=== PATIENT | male | born 1975 | race Asian ===

== ENCOUNTER 2020-08-30 08:48 | Emergency (ER) | payer SELFPAY ==
[~2020-08-30] VITALS: Ht 165.1 cm; Wt 106.1 kg
[2020-08-30 09:42] VITALS: Ht 165.1 cm; Wt 106.1 kg
[2020-08-30 12:39] LABS: BASOPHIL % 1.1 % (0.2-1.5); PLATELET COUNT 347 x10^3mcL (152-348); RED CELL DISTRIBUTION WIDTH 14.4 % (12.1-16.2)
[2020-08-30 13:16] LABS: CALCIUM 8.8 mg/dL (8.5-10.1); CARBON DIOXIDE 30.1 mmol/L (21-32); CHLORIDE SERUM 105 mmol/L (98-107); CREATININE SERUM 0.9 mg/dL (0.7-1.3); GFR1 > 60 mL/min; GLUCOSE SERUM 99 mg/dL (74-106); POTASSIUM SERUM 3.6 mmol/L (3.5-5.1); SODIUM SERUM 141 mmol/L (136-145)
[2020-08-30 13:20] LABS: ALKALINE PHOSPHATASE 57 U/L (46-116); ALT/SGPT 81 U/L (16-63); AST/SGOT 36 U/L (15-37); BILIRUBIN TOTAL 0.38 mg/dL (0.20-1.00); TOTAL PROTEIN, SERUM 8.2 g/dL (6.4-8.2)
[2020-08-30 14:13] VITALS: BP 173/112
== END 2020-08-30 14:13 | disposition home or self-care (01) ==
LOC: ED 08:48
PROVIDERS: Emergency Medicine
DX: I16.0 Hypertensive urgency (principal); R42 Dizziness and giddiness; E11.9 Type 2 diabetes mellitus without complications